=== PATIENT | male | born 1930 | race Caucasian/White ===

== ENCOUNTER 2017-12-12 05:10 | Inpatient (IN) ==
[2017-12-12] MEDS ORDERED: Insulin NovoLIN Regular Correctional Sugar Inj SQ SCH (05:45)
[2017-12-12] MEDS ORDERED: Metoprolol Tartrate 25 MG Tablet PO SCH (05:45)
[2017-12-12] MEDS ORDERED: Chlorhexidine Gluconate 2% 1 Pack (2 Cloths) TOPICAL SCH (05:45)
[2017-12-12] MEDS ORDERED: Chlorhexidine 4% Topical 120 APPLIC/120 ML Bottle TOPICAL SCH (05:45)
[2017-12-12] MEDS ORDERED: Sodium Chlor 0.9% Inj 500 ML IV.SIG SCH (06:00)
[2017-12-12] MEDS ORDERED: TRANEXAMIC ACID IV.SIG SCH ×2 (06:00→09:00)
[2017-12-12] MEDS ORDERED: SODIUM CHLOR 0.9% IV.SIG SCH ×2 (06:00→09:00)
[2017-12-12] MEDS ORDERED: ceFAZolin 2 GM Premix Inj 2 GM/50 ML PIGGYBACK IV.SIG SCH (06:00)
[2017-12-12] MEDS ORDERED: Sodium Chlor 0.9% Inj 80 ML, Bupivacaine Liposo PF 1.3% Inj 20 ML P-ARTICULR SCH ×2 (06:00)
[2017-12-12] MEDS ORDERED: EPINEPHrine PF/SF Inj 1 MG/ML Ampul I-OCULAR ONE (06:46)
[2017-12-12] MEDS ORDERED: Propofol Inj 500 MG/50 ML Vial ONE (06:47)
[2017-12-12 06:48] LABS: Calcium 9.1 mg/dL (8.5-10.1); Carbon Dioxide 26.8 meq/L (21.0-32.0); Potassium 3.7 meq/L (3.5-5.1)
[2017-12-12] MEDS ORDERED: Bupivacaine/Dextrose 0.75% Inj 2 ML Ampul ONE (06:48)
[2017-12-12] MEDS ORDERED: Acetaminophen 325 MG Tablet PO PRN (11:28)
[2017-12-12] MEDS ORDERED: Bisacodyl 10 MG Supp RECTAL PRN (11:28)
[2017-12-12] MEDS ORDERED: Morphine Inj 4 MG/ML Vial IV.PUSH PRN (11:28)
[2017-12-12] MEDS ORDERED: Zolpidem Tartrate 5 MG Tablet PO PRN (11:28)
[2017-12-12] MEDS ORDERED: Aluminum/Magnesium/Simethacone Susp 30 ML UDC PO PRN (11:28)
[2017-12-12] MEDS ORDERED: Post-op Orders (for Pharmacy) OTHER STA (11:28)
[2017-12-12] MEDS ORDERED: fentaNYL Citrate Inj 100 MCG/2 ML Ampul ONE (12:09)
--- NOTE | 2017-12-12 12:13 | P.OP ---
- Preoperative Diagnosis (1) Mechanical loosening of internal right knee prosthetic joint - Postoperative Diagnosis (1) Mechanical loosening of internal right knee prosthetic joint Date of procedure: 12/12/17 Procedure: Revision right total knee arthroplasty using Thurston Triathlon TS revision prosthesis (cemented) with stems and augmentation. Anesthesia: regional (Adductor canal block), local (Exparel), spinal Surgeon: Remington Blanc MD Airline Security Representative: SUE Infante Estimated blood loss (mL): 650 Pathology: other (Multiple samples for pathology and culture) Operation and Findings: Indications and Findings: This 87-year-old man had a total knee replacement done in [place] in 1997. He did relatively well until a few months ago when he swung all playing golf and felt a crack. He then had pain that has been persistent and progressive. He also had instability. Physical findings showed instability in the knee with tenderness when checking stability. He had significant swelling. There was no significant crepitation. X-rays showed a Scorpio prosthesis in place with evidence of loosening of both the femur and the tibia. The patella did not appear to be loosened. A CT scan was consistent with the above. Operative findings: The right knee had a total knee arthroplasty in place consistent with a Scorpio prosthesis. The femoral component was completely loose. It was very mobile. There was erosion predominantly in the medial femoral condyle but also some on the lateral femoral condyle. There is evidence of prior notching of the anterior femur. There are also osteophytes on the lateral side of the femur. The tibia and osteophytes as well medially and laterally. There were areas of loosening of the tibial component. The tibial component was internally rotated by about 10-15 from the axis of the joint. The patella component was well fixed. There was some slight wear but it was well fixed. There was extensive scar tissue in the suprapatellar pouch as well as medially and laterally. The range of motion at the time of anesthetic was 0 extension to about 65-70 of flexion. There was significant proliferation of scar and synovium throughout the knee. There was major destruction of portions of the medial femoral condyle particularly distally and posteriorly. The lateral femoral condyle had some posterior loss. The prosthesis used was a Thurston Triathlon TS prosthesis. The femur was a size 7 TS with a 15 mm x 100 mm stem, 5 mm posterior lateral augmentation, 10 mm posterior medial augmentation and 10 mm medial distal augmentation. The tibial baseplate was a size 8 universal with a 15 x 100 mm stem with a 22 mm TS spacer. The patella was retained from the prior surgery. An additional 6.5 mm Arthrex anchor was used distally. A size 6 femoral cement restrictor was used as well as a size 4 tibial cement restrictor. The patient was brought to the clean-air operating suite after regional anesthetic by adductor canal block. A spinal anesthetic was administered. The position was supine with a small bolster under the hip on the operative side. A pneumatic tourniquet was applied to the upper thigh. The lower extremity was prepped with alcohol, Hibiclens and ChloraPrep and draped in the usual manner with the knee draped free. An appropriate timeout procedure was carried out. An incision was made following the prior incision from about 6 fingerbreadths above the superior medial pole of patella down the tibial tubercle on the medial side and somewhat distally. The incision was deepened through the subcutaneous tissue to the retinacular structures which were exposed medially and laterally. A medial retinacular incision was made from the superior middle pole of patella down the tibial tubercle and up into the quadriceps tendon splitting it longitudinally and the medial one third. When fluid came from the joint, it was sent for culture and sensitivity. The patella was reflected. The extensive fibrosis was carefully and sequentially resected allowing for better motion and better soft tissue mobilization. This was in the suprapatellar pouch, medial compartment and lateral compartment. The knee had extensive areas of synovial proliferation and degeneration as well as some necrotic fibrotic debris debris. Debridement was taken back to healthy tissue in the medial gutter, lateral gutter, suprapatellar pouch. Anterior debridement was also carried out. The femoral component was carefully inspected and then was easily removed with the insertion device. Cement was loose and multiple areas synovial proliferation within the bone were identified and debrided. Healthy bone was obtained in this manner. Attention was then directed to the tibia. The flexible osteotome was then passed from anterior to posterior on the medial aspect of the tibia between the prosthesis and the metaphysis. Using stacked osteotomes, the tibial component was removed from the tibia. The tibial cement was then carefully removed from the tibia. The rotation of the prior prosthesis was identified and inspected. At this time it was found that there was some posterior medial and medial osteophytes that went beyond the original tidemark of the tibia anatomically. These were removed. The reamer was then passed down into the tibia starting with a starting reamer and going in 1 mm increments up to 17 mm. A 17 mm reamer was left in position at 100 mm deep. The proximal tibial cutting guide was positioned in place and stabilized with pins for rotation. The depth of cut was verified with a stylus off the high side. The cutting block was stabilized with pins. The reamer was removed. The proximal tibial cut was made with the oscillating saw taking care to prevent injury to neurovascular and ligamentous structures. Proximal tibial bone was removed. The tibial baseplate was sized. This was determined to be appropriate for a size 8. After verifying the appropriate size, the base plate trial was positioned in place. The tibial punch was impacted through its guide and removed. The trial tibial component was assembled with its stem and impacted into place. The position was appropriate. Attention was directed to the femur. Reaming was initiated using the starting room air and going in 1 mm increments up to a size 17. This was left in position and tapped tight. The femoral guide was positioned into place over the reamer. The depth of cut was verified the medial epicondyle of the femur. The femoral cutting guide was stabilized with pins. The distal femoral cut was then made. With this position the step cut was made for the medial femur. After the bone was removed the cutting guide was removed. The 4-in-1 block was then positioned in place and seated with the reamer in place. This was done checking for size between a size 7 in size 8. It was determined that a size 7 would fit the defects better than a size 8. When this was seated, anterior and posterior cuts were made. Chamfer cuts were also made. The box cut was made. The reamer and cutting block were removed. The box cut was completed. A trial prosthesis was assembled and impacted into place. Inserts were tried for various sizes. The insert was determined to be appropriate for a 22 mm tibial insert. Range of motion was checked. Further scar tissue was excised. The knee was taken through a range of motion which was 0 extension to 120 of flexion. Cement restrictors were placed into the distal femur and proximal tibia. The cut ends of bone were cleaned with pulse lavage. The tibial baseplate was cemented into place and seated appropriately. Excess cement was trimmed. The femoral component was cemented into place and seated appropriately in the same manner as the tibia. When the cement had cured, the trial spacer was inserted. This appeared to be appropriate for a size 22. The actual prosthesis was then inserted into the proximal tibial baseplate and seated appropriately. The peg was placed through the stem and impacted into place. The knee was taken through a range of motion which was comparable to the previous range of motion with excellent stability in flexion and extension and appropriate patellofemoral tracking. The remainder of the Exparel was injected throughout the knee as a local anesthetic. Drains were brought out the superior lateral aspect of the suprapatellar pouch. Some detachment of the distal end of the patella tendon was identified. At least 40% of [place] patellar tendon insertion was intact. A drill hole was made from lateral to medial across the tibia distally distal to this. A 6.5 mm Arthrex anchor was positioned just above this. 2 of the limbs were passed screw hole. After this was done the medial incision in the medial portion of the patella tendon were sewn with Krakw sutures together closing the inferior capsule. Distally to cover the end of the patella tendon. A secondary Krackow suture was then brought from the lateral side and somewhat lateral to this again with suture going through the bone tunnel and from the anchor together. The knee was taken through a range of motion and this showed no gapping. The remainder of the wound closure commenced using #2 FiberWire interrupted [id number] sutures for closure of the capsule distal to the patella and #1 Vicryl interrupted [id number] sutures for the capsular and fascial structures, 2-0 Vicryl interrupted simple sutures with buried knots for the subcutaneous tissues and 4-0 Monocryl, continuous subcuticular closure for the skin. The wound was dressed with Dermabond Prineo followed by dry sterile dressing. Sterile soft roll with a cooling pad and Reid bandage from the base of the toes to mid thigh were applied. Patient was transferred from the operating room to the recovery room in satisfactory condition having tolerated procedure well. Counts were correct. Specimens: Synovial fluid and other tissues for culture and sensitivity tissue for microscopic analysis. The report received in the operating room was few WBCs and no bacteria seen. Estimated blood loss: 750 mL
--- NOTE | 2017-12-12 12:53 | XR ---
EXAM DATE: 12/12/2017 12:48 PM EDT AGE/SEX: 87 years / Male INDICATIONS: Post op total right knee replacement. CLINICAL DATA: This is the patient's initial encounter. Patient reports that signs and symptoms have been present for 1 day and indicates a pain score of Nonresponsive. MEDICAL/SURGICAL HISTORY: Hypercholesterolemia. Carcinoma, colon. Carcinoma, lung. Skin CA. A-fib. Gastritis. Total knee replacement, right. Total knee replacement, left. Colon resection. Lung surgery. COMPARISON: POI, CT KNEE W/O CONTRAST, RIGHT, 11/09/2017. . FINDINGS: Right knee arthroplasty in place. Arthroplasty components are in good position. There is anatomic ali gnment. No acute bony fracture. Surgical drain in place. Postsurgical soft tissue changes. CONCLUSION: 1. Status post right knee arthroplasty in anatomic alignment without acute fracture. Electronically signed by: Nicho Tay MD 12/12/2017 12:52 PM EDT
[2017-12-12] MEDS ORDERED: Tranexamic Acid Inj 800 MG in Sodium Chlor 0.9% Inj 100 ML IV.SIG ONE (13:30)
[2017-12-12] MEDS ORDERED: Lidocaine PF 1% Inj 5 ML Syringe INFILTRATN ONE (14:31)
[2017-12-12] MEDS ORDERED: Phenylephrine/NS 1000 MCG/10ML Syringe IV.PUSH ONE (14:31)
[2017-12-12] MEDS: Ketorolac Inj 30 MG/ML (IVP) Vial IV.PUSH SCH ×2 (14:47→18:09)
[2017-12-12] MEDS: Senna/Docusate Sodium 8.6/50 MG Tablet PO SCH (22:17)
[2017-12-13] MEDS: Ketorolac Inj 30 MG/ML (IVP) Vial IV.PUSH SCH ×2 (05:15→08:21)
[2017-12-13 07:06] LABS: Hematocrit 33.3 % (39.0-51.0); Hemoglobin 11.3 gm/dL (13.0-17.0)
--- NOTE | 2017-12-13 07:36 | P.PNOP ---
Subjective Interval history: Postoperative day #1. He is doing well. He has no complaints of pain at this time. He did get out of bed and walk with the therapist. He was able to walk 40 feet. He remained partial weightbearing. His range of motion was -15 extension to 70 of flexion with the therapist. Physical Exam Vital signs: Vital Signs 12/12/17 11:59 12/12/17 12:15 12/12/17 12:30 Temperature 96.8 F L Pulse Rate 74 74 64 Respiratory Rate 19 16 17 Blood Pressure 88/62 L 103/60 103/68 Pulse Oximetry 96 97 98 12/12/17 12:45 12/12/17 13:00 12/12/17 13:30 Temperature 98.1 F Pulse Rate 57 L 63 74 Respiratory Rate 13 13 12 Blood Pressure 114/57 L 130/63 127/70 Pulse Oximetry 99 100 100 12/12/17 14:00 12/12/17 15:00 12/12/17 15:30 Temperature Pulse Rate 71 82 Respiratory Rate 12 12 Blood Pressure 138/87 134/63 Pulse Oximetry 100 100 98 12/12/17 15:51 12/12/17 16:41 12/12/17 20:30 Temperature 97.2 F L 97.2 F L 97.9 F Pulse Rate 92 H 81 105 H Respiratory Rate 15 18 17 Blood Pressure 149/78 H 136/86 131/62 Pulse Oximetry 98 95 95 12/13/17 00:25 12/13/17 04:35 Temperature 98.2 F 98.0 F Pulse Rate 83 86 Respiratory Rate 17 17 Blood Pressure 103/55 L 108/58 L Pulse Oximetry 95 94 L Intake & Output 12/12/17 12/13/17 12/13/17 18:59 06:59 18:59 Intake Total 4207.04 / 4207.04 240 / 240 Output Total 840 / 840 900 / 900 Balance 3367.04 / 3367.04 -660 / -660 Weight 79.746 kg 79.75 kg Intake: IV 1847.04 / 1847.04 LR 1000 mL Inj 1,000 ML @ 80 381 / 381 mls/hr IV.CONT .[id number] [facility] Rx# :[id number] LR 1000 mL Inj 1,000 ML @ 30 1000 / 1000 mls/hr IV.SIG .Q24H [facility] Rx#: [id number] Cyklokapron Inj 802 MG In NS 216.04 / 216.04 Inj 100 ML @ 200 mls/hr IV.SIG ONCE [facility] Rx#:[id number] Ancef 2 GM Premix Inj 2 gm In 50 / 50 50 ml @ 100 mls/hr IV.SIG 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 The neurovascular status is intact. The dressing is dry and intact. Results - Labs CBC & Chem 7: 12/13/17 06:42 12/12/17 06:15 Laboratory Results - last 24 hr 12/13/17 06:42 Hgb 11.3 L Hct 33.3 L Microbiology 12/12/17 07:44 Tissue - Knee Fungal Smear - Final No fungal elements seen 12/12/17 07:44 Other Fungal Smear - Final No fungal elements seen 12/12/17 07:44 Fluid - Synovial Fluid Fungal Smear - Final No fungal elements seen 12/12/17 07:44 Tissue - Knee Gram Stain - Final 12/12/17 07:44 Wound - Knee Gram Stain - Final 12/12/17 07:44 Fluid - Synovial Fluid Gram Stain - Final - Imaging Impressions Knee X-Ray 12/12/17 11:24 CONCLUSION: 1. Status post right knee arthroplasty in anatomic alignment without acute fracture. Assessment and Plan - Ortho Post Op Day # 1 - Problem List (1) Status post revision of total replacement of right knee Code(s): Z96.651 - Presence of right artificial knee joint Status: Acute Plan: Continue postop care and PT. Progressive resistance exercises will be avoided for 6 weeks. I have discussed his findings and the operative procedure with him. (2) Mechanical loosening of internal right knee prosthetic joint Code(s): T84.032A - Mechanical loosening of internal right knee prosthetic joint , initial encounter Status: Chronic - Assessment and Plan Condition: Good. Orthopedically stable. DVT prophylaxis: TEDs, resumption of Xarelto, sequentials. Discharge plans: Home with home health care. An appointment was scheduled through the office. Prescriptions: [place] 7.5/325; Patient is having significant pain caused by [-] which will last more than 3 days. Trial of Tylenol has not helped. I believe that it is medically necessary to treat patients pain because it is affecting patients ability to participate in postoperative rehabilitation and perform activities of daily living in a comfortable and efficient manner.
--- NOTE | 2017-12-13 07:51 | P.DCO ---
- Physical Therapy Physical Therapy: Gait training Knee: Total knee, Other (Partial weightbearing, 50%.), Protocol: Right, Gait training Right Lower Extremity Weight Bearing: Partial weight bearing 50%, No strengthening Right Lower Extremity Range of Motion: Active ROM (No passive range of motion. No painful active assisted range of motion. Range of motion in the operating room was 0-120 of flexion. Do not stress beyond 90 at this time.) - Nursing Nursing: Dressing changes Dressing changes: Daily dressing change, Coverderm/Primapore (Do not remove Dermabond Prineo.) - Certification Need for Home Health services: I have seen patient Leroy Unger on 12/13/17. My clinical findings support the need for the requested home health care services because: Need for Home Health Services: Deconditioned with increased weakness, Limited ability to care for self, High risk of falls Homebound Certification: I certify that my clinical findings support that this patient is homebound because: Homebound Certification: Post-op weakness, Unsteady gait/balance, Unsafe to leave home unassisted
[2017-12-13] MEDS: Senna/Docusate Sodium 8.6/50 MG Tablet PO SCH ×2 (08:20→22:15)
[2017-12-13] MEDS: Rivaroxaban 10 MG Tablet PO SCH (11:24)
--- NOTE | 2017-12-13 15:00 | P.CONIM ---
History of Present Illness Consult date: 12/13/17 Requesting Physician: Remington Blanc Reason for Consult: Medical management Primary Care Provider: Lino Vargas MD Family Provider: Lino Vargas MD Chief Complaint: Knee pain History of Present Illness: The patient is an 87-year-old male with a past medical history of colon cancer, lung cancer and A. fib who is presenting to the hospital for an elective right knee revision. The patient says that he was playing golf 2-3 months ago when all of a sudden he heard a snap in that knee. He said his knee became swollen and appeared crooked. He decided to see a doctor about that. He says he has had previous right knee replacement and another surgery on his right knee. He says he has had a left knee replacement in the past as well. He had knee surgery on 12/12/2017 and tolerated it well. He says he has been working with physical therapy and is hopeful to go home with home health care tomorrow. He says he was constipated at first but has been having bowel movements as of today. He is tolerating a diet. He denies any pain. He denies any fevers. Discussed with nursing. Review of Systems All other systems reviewed negative except as stated in HPI PMFSH - History History Provided By: Patient - Medical History Medical History: Medical History (Last Updated 12/13/17 @ 14:57 by Jovani Graham DO) DVT (deep venous thrombosis) Atrial fibrillation High cholesterol History of colon cancer History of skin cancer Hx of cancer of lung Painful total knee replacement, right Reflux gastritis - Surgical History Surgical History: Surgical History (Last Reviewed 12/13/17 @ 11:07 by Harper Louis) History of cataract removal with insertion of prosthetic lens History of colon resection History of lung surgery History of total knee arthroplasty - Family History Family History: Family History (Last Updated 12/13/17 @ 14:58 by Jovani Graham DO) Other CAD (coronary artery disease) - Tobacco History Second Hand Smoke Exposure: No Smoking Status: Never smoker - Alcohol History How Often Do You Have a Drink Containing Alcohol: 2 to 3 times a week - Substance Use History Substance History: No History of Abuse - Travel History Recent Travel in the [place] Within the Last 8 Weeks: No Recent Travel Out of the Country Within the Last 8 Weeks: No - Immunization History Tetanus Immunization: <5 Years Hx Influenza Vaccine This Season: Yes Medications and Allergies Active Medications: Active Medications Acetaminophen (Tylenol) 650 mg PO Q6H PRN PRN Reason: Pain Less Than 3 On Scale Hydrocodone Bitart/Acetaminophen ([place] 7.5/325) 1 tab PO Q4H PRN PRN Reason: PAIN SCALE 4 TO 6 MODERATE Last Admin: 12/13/17 08:20 Dose: 1 tab Hydrocodone Bitart/Acetaminophen ([place] 7.5/325) 2 tab PO Q6H PRN PRN Reason: PAIN SCALE 7 TO 10 SEVERE Al Hydrox/Mg Hydrox/Simethicone (Mag-Al Plus Susp Liq) 30 ml PO Q6H PRN PRN Reason: INDIGESTION Al Hydroxide/Mg Hydroxide (Milk Of Magnesia Liq) 30 ml PO BID PRN PRN Reason: Mild Constipation Last Admin: 12/13/17 08:21 Dose: 30 ml Bisacodyl (Dulcolax Supp) 10 mg RECTAL DAILY PRN PRN Reason: SEVERE CONSITIPATION Chlorhexidine Gluconate (Chlorhexidine 2% Cloth) 3 pack TOPICAL [facility]EVELING AND [facility]ING [facility] Stop: 12/15/17 05:31 Last Admin: 12/12/17 05:30 Dose: 3 pack Chlorhexidine Gluconate (Hibiclens 4% Topical) 1 applicatio TOPICAL ONCE PATTIE Stop: 12/16/17 05:44 Last Admin: 12/12/17 05:45 Dose: 1 applicatio Diphenhydramine HCl (Benadryl) 25 mg PO Q6H PRN PRN Reason: ITCHING Lactated Ringer's (Lr 1000 Ml Inj) 1,000 mls @ 30 mls/hr IV.SIG .Q24H PATTIE Stop: 12/15/17 05:31 Last Admin: 12/13/17 07:05 Dose: Not Given Sodium Chloride (Ns Inj) 500 mls @ 30 mls/hr IV.SIG .Q10H [facility] Stop: 12/15/17 05:31 Cefazolin Sodium/Dextrose (Ancef 2 Gm Premix Inj) 2 gm in 50 mls @ 100 mls/hr 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 Stop: 12/16/17 05:59 Last Infusion: 12/12/17 07:45 Dose: Infused Lactated Ringer's (Lr 1000 Ml Inj) 1,000 mls @ 80 mls/hr IV.CONT .[id number] [facility] Last Infusion: 12/13/17 10:19 Dose: Infused Insulin Human Regular (Novolin R Correctional Sugar Inj) 0 units SQ [facility]EVELING AND [facility] ; Protocol Stop: 12/15/17 05:31 Lactulose (Lactulose Liq) 30 ml PO DAILY PRN PRN Reason: SEVERE CONSITIPATION Metoprolol Tartrate (Lopressor) 25 mg PO [facility]EVELING AND [facility] Stop: 12/15/17 05:31 Last Admin: 12/12/17 06:32 Dose: Not Given Morphine Sulfate (Morphine Inj) 2 mg IV.PUSH Q3H PRN PRN Reason: BREAKTHROUGH PAIN Ondansetron HCl (Zofran Odt) 4 mg PO Q6H PRN PRN Reason: NAUSEA OR VOMITING Pantoprazole Sodium (Protonix) 40 mg PO DAILY [facility] Last Admin: 12/13/17 08:21 Dose: 40 mg Povidone Iodine (Betadine 5% Antisepsis Kit) 1 applicatio EACH NARE BEVELING AND [employer] [facility] Stop: 12/15/17 05:31 Last Admin: 12/12/17 06:00 Dose: 1 applicatio Pravastatin Sodium (Pravachol) 20 mg PO QPM [facility] Last Admin: 12/12/17 18:09 Dose: 20 mg Rivaroxaban (Xarelto) 20 mg PO Q24H [facility] Last Admin: 12/13/17 11:24 Dose: 20 mg Senna/Docusate Sodium (Jayleen-Colace) 1 tab PO BID [facility] Last Admin: 12/13/17 08:20 Dose: 1 tab Sennosides (Senokot) 17.2 mg PO BID PRN PRN Reason: Moderate Constipation Last Admin: 12/13/17 08:20 Dose: 17.2 mg Sodium Chloride (Ns Flush) 2 ml IV.FLUSH PRN PRN PRN Reason: FLUSH AFTER USING IV ACCESS Sodium Chloride (Ns Flush) 2 ml IV.FLUSH BID [facility] Last Admin: 12/13/17 08:26 Dose: 2 ml Zolpidem Tartrate (Ambien) 5 mg PO HS PRN PRN Reason: INSOMNIA Allergies Allergy/AdvReac Type Severity Reaction Status Date / Time No Known Allergies Allergy Verified 11/30/17 09:02 Home Medications Medication Instructions Recorded Confirmed Type lovastatin 20 mg PO QPM 11/30/17 12/12/17 History pantoprazole 40 mg PO DAILY 11/30/17 12/12/17 History rivaroxaban [Xarelto] 20 mg PO DAILY 11/30/17 12/12/17 History Exam Vital signs: Vital Signs 12/12/17 15:00 12/12/17 15:30 12/12/17 15:51 Temperature 97.2 F L Pulse Rate 82 92 H Respiratory Rate 12 15 Blood Pressure 134/63 149/78 H Pulse Oximetry 100 98 98 12/12/17 16:41 12/12/17 20:30 12/13/17 00:25 Temperature 97.2 F L 97.9 F 98.2 F Pulse Rate 81 105 H 83 Respiratory Rate 18 17 17 Blood Pressure 136/86 131/62 103/55 L Pulse Oximetry 95 95 95 12/13/17 04:35 12/13/17 08:00 12/13/17 12:00 Temperature 98.0 F 98.8 F 98.1 F Pulse Rate 86 89 88 Respiratory Rate 17 12 15 Blood Pressure 108/58 L 116/55 L 110/59 L Pulse Oximetry 94 L 92 L 93 L Intake & Output 12/12/17 12/13/17 12/13/17 18:59 06:59 18:59 Intake Total 4207.04 / 4207.04 240 / 240 924 / 924 Output Total 840 / 840 900 / 900 50 / 50 Balance 3367.04 / 3367.04 -660 / -660 874 / 874 Weight 79.746 kg 79.75 kg Intake: IV 1847.04 / 1847.04 924 / 924 LR 1000 mL Inj 1,000 ML @ 80 381 / 381 824 / 824 mls/hr IV.CONT .[id number] PATTIE Rx# :[id number] LR 1000 mL Inj 1,000 ML @ 30 1000 / 1000 mls/hr IV.SIG .Q24H PATT[facility] Rx#: [id number] Cyklokapron Inj 802 MG In NS 216.04 / 216.04 Inj 100 ML @ 200 mls/hr IV.SIG ONCE PATTIE Rx#:[id number] Ancef 2 GM Premix Inj 2 gm In 50 / 50 50 ml @ 100 mls/hr 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 Rx#:[id number] Ancef Inj 1,000 MG In NS Inj 200 / 200 100 / 100 100 ML @ 200 mls/hr IV.SIG Q6H PATTIE Rx#:[id number] Oral 360 / 360 240 / 240 Anesthesia Amount 1999 Output: Urine 800 / 800 Estimated Blood Loss 650 / 650 Wound Drainage 190 / 190 100 / 100 50 / 50 # 2 Right Knee Hemovac 190 / 190 100 / 100 50 / 50 Other: Date of Last Bowel Movement 12/11/17 12/11/17 12/11/17 # Bowel Movements 1 Narrative: GENERAL: NAD HEENT: NC, AT LUNGS: CTAB HEART: RRR GI: soft, nontender EXTREMITIES: Right knee bandaged NEURO: No gross deficits Results - Labs CBC & Chem 7: 12/13/17 06:42 12/12/17 06:15 Labs: Laboratory Results - last 24 hr 12/13/17 06:42 Hgb 11.3 L Hct 33.3 L Assessment and Plan - Plan S/p right knee revision Currently stable. - wound care, weightbearing and anticoagulation per surgery. - IS. - PT. - pain control with a bowel regimen. A fib Rate controlled at this time. - continue home regimen. Anemia Mild. - CBC in AM PPx: Per surgery
[2017-12-14 05:45] LABS: Hematocrit 30.5 % (39.0-51.0); Hemoglobin 10.5 gm/dL (13.0-17.0)
[2017-12-14 05:47] LABS: Hematocrit 30.7 % (39.0-51.0); Hemoglobin 10.5 gm/dL (13.0-17.0); Mean Corpuscular HGB Conc 34.2 % (32.0-36.0); Mean Corpuscular Hemoglobin 35.5 pg (27.0-34.0); Mean Corpuscular Volume 103.9 fL (80.0-100.0); Mean Platelet Volume 9.5 fL (7.0-11.0); Platelet Count 95 th/mm3 (150-450); Red Blood Count 2.96 mil/mm3 (4.50-5.90); Red Cell Distribution Width 13.9 % (11.6-17.2); White Blood Count 7.7 th/mm3 (4.0-11.0)
--- NOTE | 2017-12-14 07:37 | P.PNOP ---
Subjective Interval history: Postoperative day #2. He is doing well. He has minimal complaints. Occasionally he will have a small intermittent sharp pain. This is inconsistent as to timing, position and other variables. He has done well with physical therapy. His range of motion is -5 extension to 70 of flexion. He walks 40 feet with the physical therapist. He attended class. Physical Exam Vital signs: Vital Signs 12/13/17 08:00 12/13/17 12:00 12/13/17 16:00 Temperature 98.8 F 98.1 F 98.6 F Pulse Rate 89 88 89 Respiratory Rate 12 15 14 Blood Pressure 116/55 L 110/59 L 111/59 L Pulse Oximetry 92 L 93 L 93 L 12/13/17 17:14 12/13/17 20:00 12/14/17 00:00 Temperature 99.1 F 97.8 F Pulse Rate 73 80 Respiratory Rate 18 18 18 Blood Pressure 109/55 L 126/59 L Pulse Oximetry 96 96 12/14/17 04:00 Temperature 97.9 F Pulse Rate 92 H Respiratory Rate 18 Blood Pressure 132/70 Pulse Oximetry 95 Intake & Output 12/13/17 12/14/17 12/14/17 18:59 06:59 18:59 Intake Total 1374 / 1374 Output Total 50 / 50 310 / 310 Balance 1324 / 1324 -310 / -310 Weight 80.2 kg Intake: IV 924 / 924 LR 1000 mL Inj 1,000 ML @ 80 824 / 824 mls/hr IV.CONT .[id number] PATTIE Rx# :[id number] Ancef Inj 1,000 MG In NS Inj 100 / 100 100 ML @ 200 mls/hr IV.SIG Q6H PATTIE Rx#:[id number] Oral 450 / 450 Output: Urine 200 / 200 Wound Drainage 50 / 50 110 / 110 # 2 Right Knee Hemovac 50 / 50 110 / 110 Other: # Voids 2 2 Date of Last Bowel Movement 12/11/17 12/13/17 # Bowel Movements 2 2 Narrative: He is resting comfortably, supine in bed, in the CPM. The neurovascular status is intact. The dressing is dry and intact. Results - Labs CBC & Chem 7: 12/14/17 04:43 12/12/17 06:15 Laboratory Results - last 24 hr 12/14/17 12/14/17 04:43 04:43 WBC 7.7 RBC 2.96 L Hgb 10.5 L 10.5 L Hct 30.5 L 30.7 L MCV 103.9 H MCH 35.5 H MCHC 34.2 RDW 13.9 Plt Count 95 L MPV 9.5 Microbiology 12/12/17 07:44 Tissue - Knee Gram Stain - Final 12/12/17 07:44 Tissue - Knee Wound Culture - Preliminary No growth in 24 hours 12/12/17 07:44 Wound - Knee Gram Stain - Final 12/12/17 07:44 Wound - Knee Wound Culture - Preliminary No growth in 24 hours 12/12/17 07:44 Fluid - Synovial Fluid Gram Stain - Final 12/12/17 07:44 Fluid - Synovial Fluid Wound Culture - Preliminary No growth in 24 hours 12/12/17 07:44 Tissue - Knee Acid Fast Bacilli Smear - Final No acid fast bacilli seen 12/12/17 07:44 Other Acid Fast Bacilli Smear - Final No acid fast bacilli seen 12/12/17 07:44 Fluid - Synovial Fluid Acid Fast Bacilli Smear - Final No acid fast bacilli seen - Procedures Revision right total knee arthroplasty using [place] Triathlon TS prosthesis with stems and augmentations (cemented) on 12/12/2017. Assessment and Plan - Ortho Post Op Day # 2 - Problem List (1) Status post revision of total replacement of right knee Code(s): Z96.651 - Presence of right artificial knee joint Status: Acute (2) Mechanical loosening of internal right knee prosthetic joint Code(s): T84.032A - Mechanical loosening of internal right knee prosthetic joint , initial encounter Status: Resolved - Assessment and Plan Condition: Good. Orthopedically stable. DVT prophylaxis: TEDs, resumption of Xarelto, sequentials. Discharge plans: Home with home health care. An appointment was scheduled through the office. Prescriptions: [place] 7.5/325; Patient is having significant pain caused by a total knee arthroplasty which will last more than 3 days. Trial of Tylenol has not helped. I believe that it is medically necessary to treat patients pain because it is affecting patients ability to participate in postoperative rehabilitation and perform activities of daily living in a comfortable and efficient manner.
--- NOTE | 2017-12-14 07:46 | P.DS ---
Date of admission: 12/12/17 05:10 Primary care physician: Lino Vargas MD Attending physician on discharge: Remington Blanc Anticipated date of discharge: 12/14/17 Brief History from admission: This 87-year-old man had a total knee arthroplasty in [place] approximately 20 years ago. He did relatively well until a month ago when he was playing golf and swung causing pain in his knee. After this, he had progressive deformity in his knee with persistent and continuous pain when moving. He was evaluated in my office and found to have evidence of loosening of his total knee replacement. Physical findings showed significant laxity on motion in the right knee with significant swelling and tenderness on motion. X-rays and CT scan showed a total knee arthroplasty in place that had significant loosening of the femoral component and probable loosening of the tibial component. He was admitted for elective revision arthroplasty. DS: Diagnosis - Discharge Diagnosis (1) Status post revision of total replacement of right knee Status: Acute (2) Mechanical loosening of internal right knee prosthetic joint Status: Resolved DS: Medications - Discharge Medications Prescriptions: hydrocodone-acetaminophen 1 tab PO Q4H PRN 7 Days #42 tab PRN Reason: Pain DS: Summary Hospital Course: The patient was admitted as noted above. The above noted operative procedure was carried out that day. Preoperatively prophylactic antibiotics were administered Ancef according to protocol. These were continued postoperatively. The patient also received tranexamic acid to help with hemostasis according to protocol. In the postanesthesia care unit mechanical methods of DVT prophylaxis in the form of PETROS stockings and sequentials were initiated. Physical therapy was initiated on the day of surgery. On postoperative day #1 physical therapy continued. DVT prophylaxis with resumption of his Xarelto was initiated at this time. The patient continued physical therapy throughout the hospitalization. The distance walked and range of motion improved throughout the hospitalization. The patient was discharged on postoperative day 2 with the disposition being to home with home health care. An appointment for follow-up was made prior to admission. - Time Spent with Patient Total time spent providing and/or coordinating discharge services: - Quality: VTE Deep Vein Thrombosis/Pulmonary Embolism Present on Admission: No Exam Vital signs: Vital Signs 12/13/17 08:00 12/13/17 12:00 12/13/17 16:00 Temperature 98.8 F 98.1 F 98.6 F Pulse Rate 89 88 89 Respiratory Rate 12 15 14 Blood Pressure 116/55 L 110/59 L 111/59 L Pulse Oximetry 92 L 93 L 93 L 12/13/17 17:14 12/13/17 20:00 12/14/17 00:00 Temperature 99.1 F 97.8 F Pulse Rate 73 80 Respiratory Rate 18 18 18 Blood Pressure 109/55 L 126/59 L Pulse Oximetry 96 96 12/14/17 04:00 Temperature 97.9 F Pulse Rate 92 H Respiratory Rate 18 Blood Pressure 132/70 Pulse Oximetry 95 Intake & Output 12/13/17 12/14/17 12/14/17 18:59 06:59 18:59 Intake Total 1374 / 1374 Output Total 50 / 50 310 / 310 Balance 1324 / 1324 -310 / -310 Weight 80.2 kg Intake: IV 924 / 924 LR 1000 mL Inj 1,000 ML @ 80 824 / 824 mls/hr IV.CONT .[id number] [facility] Rx# :[id number] Ancef Inj 1,000 MG In NS Inj 100 / 100 100 ML @ 200 mls/hr IV.SIG Q6H PATTIE Rx#:[id number] Oral 450 / 450 Output: Urine 200 / 200 Wound Drainage 50 / 50 110 / 110 # 2 Right Knee Hemovac 50 / 50 110 / 110 Other: # Voids 2 2 Date of Last Bowel Movement 12/11/17 12/13/17 # Bowel Movements 2 2 Narrative: He is resting comfortably, supine in bed, in the CPM. The neurovascular status is intact. The dressing is dry and intact. Results Procedures completed during hospitalization: Revision right total knee arthroplasty using [place] Triathlon TS prosthesis with stems and augmentations (cemented) on 12/12/2017. Completed studies during hospitalization: Pending at discharge 12/12/17 11:52 Surgical [PTH] Routine Labs on day of discharge: Labs from last 24 hours 12/14/17 12/14/17 04:43 04:43 WBC 7.7 RBC 2.96 L Hgb 10.5 L 10.5 L Hct 30.7 L 30.5 L MCV 103.9 H MCH 35.5 H MCHC 34.2 RDW 13.9 Plt Count 95 L MPV 9.5 Preliminary micro results at discharge 12/12/17 07:44 Wound Culture - Preliminary Tissue - Knee No growth in 24 hours 12/12/17 07:44 Wound Culture - Preliminary Wound - Knee No growth in 24 hours 12/12/17 07:44 Wound Culture - Preliminary Fluid - Synovial Fluid No growth in 24 hours - Impressions ITS Impressions Knee X-Ray 12/12/17 11:24 CONCLUSION: 1. Status post right knee arthroplasty in anatomic alignment without acute fracture. Discharge Plan - Discharge Disposition Patient Disposition: W/Home Health Service - Discharge Condition Condition: Stable - Discharge Order Discharge Orders: Discharge Order (Routine); Ordered 12/14/17 Ordered By: Remington Blanc - Discharge Details Anticipated Discharge Date: 12/14/17 - Physicians Team Primary Care Provider: Lino Vargas Attending Provider: Remington Blanc Other Providers: Jovani Graham DO - Rxs /Orders / Referrals /Forms Prescriptions: New hydrocodone-acetaminophen 7.5-325 mg Tablet 1 tab PO Q4H PRN (Reason: Pain) 7 Days Qty: 42 RF: 0 Continue lovastatin 20 mg Tablet 20 mg PO QPM pantoprazole 40 mg Tablet,Delayed Release (Dr/Ec) 40 mg PO DAILY rivaroxaban [Xarelto] 20 mg Tablet 20 mg PO DAILY Referrals: Lino Vargas MD [Primary Care Provider] - See Instructions - Discharge Instructions Additional Instructions: No resistance exercises until 6 weeks postop. Partial weightbearing until 6 weeks postop. - Post Discharge Care Plan Care Plan Goals: He is to be 50% weightbearing on the operative side. Active and active assisted range of motion can be done but he should not have passive range of motion. He should have no progressive resistance exercises at this time.
[2017-12-14] MEDS: Senna/Docusate Sodium 8.6/50 MG Tablet PO SCH (09:22)
[2017-12-14] MEDS: Rivaroxaban 10 MG Tablet PO SCH (11:22)
--- NOTE | 2017-12-14 11:29 | P.PNIM ---
Subjective Interval history: The patient was feeling well and looking forward to going home. He had no acute complaints. Physical Exam Vital signs: Vital Signs 12/13/17 12:00 12/13/17 16:00 12/13/17 17:14 Temperature 98.1 F 98.6 F Pulse Rate 88 89 Respiratory Rate 15 14 18 Blood Pressure 110/59 L 111/59 L Pulse Oximetry 93 L 93 L 12/13/17 20:00 12/14/17 00:00 12/14/17 04:00 Temperature 99.1 F 97.8 F 97.9 F Pulse Rate 73 80 92 H Respiratory Rate 18 18 18 Blood Pressure 109/55 L 126/59 L 132/70 Pulse Oximetry 96 96 95 12/14/17 08:00 Temperature 98.0 F Pulse Rate 90 Respiratory Rate 19 Blood Pressure 120/58 L Pulse Oximetry 94 L Intake & Output 12/13/17 12/14/17 12/14/17 18:59 06:59 18:59 Intake Total 1374 / 1374 Output Total 50 / 50 310 / 310 Balance 1324 / 1324 -310 / -310 Weight 80.2 kg Intake: IV 924 / 924 LR 1000 mL Inj 1,000 ML @ 80 824 / 824 mls/hr IV.CONT .[id number] [facility] Rx# :[id number] Ancef Inj 1,000 MG In NS Inj 100 / 100 100 ML @ 200 mls/hr IV.SIG Q6H PATT[facility] Rx#:[id number] Oral 450 / 450 Output: Urine 200 / 200 Wound Drainage 50 / 50 110 / 110 # 2 Right Knee Hemovac 50 / 50 110 / 110 Other: # Voids 2 2 Date of Last Bowel Movement 12/11/17 12/13/17 # Bowel Movements 2 2 Narrative: GENERAL: NAD HEENT: NC, AT LUNGS: CTAB HEART: RRR GI: soft, nontender EXTREMITIES: Right knee bandaged NEURO: No gross deficits Results - Labs CBC & Chem 7: 12/14/17 04:43 12/12/17 06:15 Laboratory Results - last 24 hr 12/14/17 12/14/17 04:43 04:43 WBC 7.7 RBC 2.96 L Hgb 10.5 L 10.5 L Hct 30.5 L 30.7 L MCV 103.9 H MCH 35.5 H MCHC 34.2 RDW 13.9 Plt Count 95 L MPV 9.5 Microbiology 12/12/17 07:44 Tissue - Knee Gram Stain - Final 12/12/17 07:44 Tissue - Knee Wound Culture - Preliminary No growth in 48 hours 12/12/17 07:44 Wound - Knee Gram Stain - Final 12/12/17 07:44 Wound - Knee Wound Culture - Preliminary No growth in 48 hours 12/12/17 07:44 Fluid - Synovial Fluid Gram Stain - Final 12/12/17 07:44 Fluid - Synovial Fluid Wound Culture - Preliminary No growth in 48 hours 12/12/17 07:44 Tissue - Knee Acid Fast Bacilli Smear - Final No acid fast bacilli seen 12/12/17 07:44 Other Acid Fast Bacilli Smear - Final No acid fast bacilli seen 12/12/17 07:44 Fluid - Synovial Fluid Acid Fast Bacilli Smear - Final No acid fast bacilli seen - Procedures Revision right total knee arthroplasty using [place] Triathlon TS prosthesis with stems and augmentations (cemented) on 12/12/2017. Assessment and Plan - Plan S/p right knee revision Currently stable. - wound care, weightbearing and anticoagulation per surgery. - IS. - PT. - pain control with a bowel regimen. A fib Rate controlled at this time. - continue home regimen. Anemia Post-operative. - follow CBC as needed. Thrombocytopenia Acute on chronic. Pt is on Xarelto. - recommend repeat CBC as an outpt. - follow-up with PCP/ortho. PPx: Per surgery
[2017-12-14 12:07] VITALS: BP 114/56; PULSE 92; RESP 18; TEMP 98.1; O2SAT 96
== END 2017-12-14 14:32 | disposition home health service (06) ==
LOC: HSDI 05:10 → N06 16:23
PROVIDERS: ADMIT Orthopaedic Surgery; ATTEND Orthopaedic Surgery